=== PATIENT | male | born 1990 | race Hispanic/Latino ===

== ENCOUNTER 2023-04-23 10:03 | Emergency (ER) | payer MEDICARE, MEDICAID | END 2023-04-23 10:24 | disposition home or self-care (01) | LOC: ERS 10:03 | DX: L03.032 Cellulitis of left toe (principal); I10 Essential (primary) hypertension; Z79.899 Other long term (current) drug therapy; Z79.82 Long term (current) use of aspirin | CPT/HCPCS: 99283 ==

== ENCOUNTER 2023-04-26 08:46 | Emergency (ER) | payer MEDICARE, MEDICAID | END 2023-04-26 10:30 | disposition home or self-care (01) | LOC: ERS 08:46 | DX: M25.571 Pain in right ankle and joints of right foot (principal); M79.672 Pain in left foot; I10 Essential (primary) hypertension; Z79.899 Other long term (current) drug therapy; Z79.82 Long term (current) use of aspirin ==